=== PATIENT | male | born 1955 | race Caucasian/White ===

== ENCOUNTER 2021-10-26 01:29 | Observation (INO) | payer MEDICARE, SELFPAY ==
[2021-10-26] VITALS (67 sets, daily range): BP systolic 110–186; BP diastolic 60–116; PULSE 76–107; RESP 10–25; TEMP 36.7; O2SAT 90–100; BMI 21.2
--- NOTE | ~2021-10-26 | CT_ITS ---
EXAMINATION: CT abdomen pelvis wo con EXAM DATE: 10/26/2021 04:14 INDICATION: Epigastric pain, emesis 3-4 days. TECHNIQUE: Spiral CT of the abdomen and pelvis was performed without contrast. Axial, coronal and s agittal images of the abdomen and pelvis were reviewed. The dose-length product (DLP) for this exami nation was 373.51 mGy-cm. The exposure was tailored according to patient size (auto mA exposure cont rol), and iterative reconstruction (ASIR) was used as additional dose reduction technique. There is no prior study for comparison. FINDINGS: The liver, spleen, adrenal glands and pancreas are unremarkable. Gallbladder is unremarkab le. No biliary obstruction. There is no nephrolithiasis or hydronephrosis. The prostate is unrema rkable. The bladder is unremarkable. There is no retroperitoneal or pelvic lymphadenopathy. There is mild scattered arteriosclerotic disease. Small left inguinal fat-containing hernia. The appendix is normal. There is mild to moderate colonic diverticulosis. There is no adjacent infla mmatory change to suggest diverticulitis. The stomach and small bowel are unremarkable. There is exp ected amount of colonic stool. No free intraperitoneal gas. The heart is normal in size. There a re no pericardial or pleural effusions. The lung bases are unremarkable. The bones are unremarkable . IMPRESSION: 1. No acute intra-abdominal findings. 2. Mild to moderate colonic diverticulosis. Reviewed, dictated and finalized at location A. [employer] [facility]
[2021-10-26 03:10] LABS: Basophils Absolute Auto 0.1 K/mm3 (0.0-0.1); Basophils Percent Auto 0.2 % (0.2-1.2); Hematocrit 42.5 % (42.0-52.0); Hemoglobin 16.3 g/dL (14.0-18.0); Immature Granulocyte Absolute 0.15 K/mm3 (0.00-0.031); Immature Granulocyte Percent A 0.6 % (0-0.5); Lymphocytes Absolute Auto 1.64 K/mm3 (0.9-3.2); Lymphocytes Percent Auto 6.8 % (18.3-44.2); Mean Corpuscular Hemoglobin 31.9 pg (26-34); Mean Corpuscular Volume 83.2 fl (80-100); Mean Platelet Volume 10.7 fl (7.4-10.4); Monocytes Absolute Auto 2.7 K/mm3 (0.1-0.6); Monocytes Percent Auto 11.3 % (2.6-8.5); Neutrophils Absolute Auto 19.4 K/mm3 (1.3-6.7); Neutrophils Percent Auto 81.1 % (45.5-73.1); Platelet Count Result 319 k/mm3 (150-375); Red Blood Count 5.11 M/mm3 (4.6-6.20); Red Cell Distribution Width 11.5 % (11.5-14.5)
[2021-10-26 03:21] LABS: Add Urine Microscopic? YES; Appearance Urine Clear (Clear); Bacteria Urine Trace /hpf; Bilirubin Urine Negative (Negative); Blood Urine 1+ (Negative); Color Urine Yellow (Yellow); Glucose Urine UA Negative (Negative); Hyaline Casts Urine 30-49 /lpf; Ketones Urine Negative (Negative); Leukocyte Esterase Ur Negative LEU/UL (Negative); Mucus Urine Rare /lpf; Nitrate Urine Negative (Negative); Protein Urine 1+ mg/dL (Negative); RBC Urine 0-2 /hpf (0-2); Specific Grav Ur 1.019 (1.001-1.035); Squamous Epithelial Cell Urine Rare /hpf (Few); Urobilinogen Urine Negative mg/dL (<2.0); WBC Urine 0-3 /hpf
[2021-10-26 03:27] LABS: Alanine Aminotransferase 27 U/L (4-50); Albumin Level 5.1 g/dL (3.5-5.1); Alkaline Phosphatase 60 U/L (38-126); Aspartate Amino Transferase 41 U/L (17-59); Bilirubin,Total 2.1 mg/dL (0.2-1.3); Blood Urea Nitrogen 108 mg/dL (9-20); Calcium 9.9 mg/dL (8.4-10.2); Carbon Dioxide 17 mmol/L (22-30); Chloride 87 mmol/L (98-107); Estimated Glomerular Filt Rate 15; Glucose 170 mg/dL (65-110); Lipase 136 U/L (23-300); Potassium 3.6 mmol/L (3.4-5.0)
[2021-10-26 03:28] LABS: Anion Gap 16 mmol/L (8-16); Sodium 120 mmol/L (137-145)
[2021-10-26 03:38] LABS: Mean Corpuscular HGB Conc 38.4 g/dl (32-36)
[2021-10-26] MEDS: ONDANSETRON INJ 4 MG/2 ML VIAL IV PUSH (03:44)
[2021-10-26] MEDS: SODIUM CHLORIDE 0.9% IV 1,000 ML 999 ML IV CONT ×2 (03:44→05:29)
[2021-10-26] MEDS: PANTOPRAZOLE SODIUM IV 40 MG VIAL IV PUSH ×2 (04:37→09:23)
--- NOTE | 2021-10-26 04:56 | ED.NAVMDI ---
HPI - Nausea/Vomiting/Diarrhea General Chief complaint: Nausea/Vomiting/Diarrhea Stated complaint: nausea, vomiting Time Seen by Provider: 10/26/21 03:02 History of Present Illness HPI Narrative: Patient is a 66-year-old male who presents ER with nausea and vomiting. Ongoing for 5 days. Reports she cannot anything up at this time. Reports begins with a pit in his stomach in his epigastrium. This happens to him recurrently but usually lasts no longer than 3 days. He has burning going up into his chest. He has been trying to self induce vomit and had some pink emesis earlier. No ly hemoptysis or clots. Denies fevers or chills or sweats. Maintains normal urination. He reports over 20 pound weight loss over the last 5 days due to vomiting. No syncope or dizziness. Related Data Allergies Allergy/AdvReac Type Severity Reaction Status Date / Time Penicillins Allergy Itching Verified 10/26/21 03:43 Review of Systems Review of Systems: All systems reviewed & are unremarkable except as noted in HPI and below Constitutional: Constitutional: Denies chills, Reports fatigue and Denies fever(s) ENT: Denies nasal congestion and Denies sore throat Cardiovascular: Cardiovascular: Denies chest pain, Denies rapid heart rate and Denies radiating jaw, neck or arm pain Respiratory: Respiratory: Denies cough and Denies dyspnea Gastrointestinal: Gastrointestinal: Reports abdominal pain, Denies constipation, Denies diarrhea, Reports nausea and Reports vomiting Genitourinary: Genitourinary: Denies oliguria, Denies dysuria and Denies urinary frequency Musculoskeletal: Musculoskeletal: Denies back pain and Denies muscle cramps PMFSH Past Medical History Medical History (Updated 10/26/21 @ 07:22 by Kane Martin MD) Healthy adult male Surgical History Surgical History (Updated 10/26/21 @ 04:57 by Kane Martin MD) No history of previous surgery Social History Social History (Updated 10/26/21 @ 04:57 by Kane Martin MD) Smoking status: Current every day smoker Tobacco type: e-cigarettes/vaping Exam Narrative: GENERAL: Well-appearing, well-nourished, and in no acute distress. HEAD: Normocephalic, atraumatic. EYES: PERRL and EOMI. ENT: Mucous membranes moist. CHEST: Clear to auscultation. No respiratory distress. HEART: Regular rate and rhythm. Normal peripheral pulses. ABDOMEN: Soft, mild tenderness epigastrium, nondistended, normal active bowel sounds. EXTREMITIES: Normal range of motion. No edema. SKIN: Warm, dry, no rash. NEURO: Alert and oriented x3. PSYCH: Normal mood and affect. Course Course Emergency Course: Patient informed of results. Admit to hospitalist service. Patient is given 2 L of IV fluid bolus and he will receive a continuous infusion. Will give Protonix for his GI symptoms. Patient also reports he has been sitting in a indoor whirlpool hot tub to regulate his temperature daily. This may have contributed to his decline. Vital Signs Vital signs: Vital Signs Pulse Rate 89 10/26/21 01:33 Respiratory Rate 20 10/26/21 01:33 Blood Pressure 139/102 H 10/26/21 01:33 Pulse Oximetry 99 10/26/21 01:33 Pulse Rate 96 10/26/21 06:51 Respiratory Rate 18 10/26/21 06:51 Blood Pressure 144/77 H 10/26/21 06:51 Pulse Oximetry 99 10/26/21 06:51 MDM - Nausea/Vomiting/Diarrhea Lab Data Result diagrams: 10/26/21 03:03 10/26/21 03:03 Labs: Lab Results 10/26/21 10/26/21 10/26/21 Range/Units 03:03 03:03 03:03 WBC 24.0 H (4.5-10.0) K/mm3 RBC 5.11 (4.6-6.20) M/mm3 Hgb 16.3 (14.0-18.0) g/dL Hct 42.5 (42.0-52.0) % MCV 83.2 (80-100) fl MCH 31.9 (26-34) pg MCHC 38.4 H (32-36) g/dl RDW 11.5 (11.5-14.5) % Plt Count 319 (150-375) k/mm3 MPV 10.7 H (7.4-10.4) fl Immature Gran % (Auto) 0.6 H (0-0.5) % Neut % (Auto) 81.1 H (45.5-73.1) % Lymph % (Auto) 6.8 L (18.3-44.2) %
[2021-10-26] MEDS: SODIUM CHLORIDE 0.9% IV 1,000 ML 100 ML IV CONT ×2 (07:39→18:48)
--- NOTE | 2021-10-26 13:48 | PM.IMHP ---
H&P: HPI History of Present Illness Date/Time: 10/26/21 13:48 ED-HPI Narrative: Patient is a 66-year-old male who presents ER with nausea and vomiting. Ongoing for 5 days. Reports she cannot anything up at this time. Reports begins with a pit in his stomach in his epigastrium. This happens to him recurrently but usually lasts no longer than 3 days. He has burning going up into his chest. He has been trying to self induce vomit and had some pink emesis earlier. No ly hemoptysis or clots. Denies fevers or chills or sweats. Maintains normal urination. He reports over 20 pound weight loss over the last 5 days due to vomiting. No syncope or dizziness. 10/26/2021 interval history: patient continued to have symptoms denies any hematemesis, or hematochezia, patient has a leukocytosis no fever or chills, CT scan of the abdomen essentially normal,Patient is significant elevated BUN and creatinine can also result in and nausea and vomiting, not not sure what patient baseline BUN and creatinine, will do the kidney ultrasound, will do cardiac echo, a consult Nephrology for further recommendation. patient has hyponatremia most likely secondary to emesis resulting in dehydration will gently hydrate the patient, will consult GI for further recommendation, will order blood culture and monitor the patient., patient is admitted as inpatient most likely will stay in the hospital for 2 midnights. Chief Complaint: nausea and vomiting Review of Systems Review of Systems: All systems reviewed & are unremarkable except as noted in HPI and below PMFSH Past Medical History Medical History (Updated 10/26/21 @ 18:04 by Leslie Ordoñez MD) Healthy adult male Surgical History Surgical History (Updated 10/26/21 @ 04:57 by Kane Martin MD) No history of previous surgery Social History Social History (Updated 10/26/21 @ 04:57 by Kane Martin MD) Years smoked: 10 Smoking status: Former smoker Tobacco type: cigarettes Second hand tobacco smoke exposure: Yes Additional smoking assessment comments: currently vapes on occasion Alcohol intake: former Substance use: current Substance use type: marijuana Other substance usage details: quit drinking 4-5 years ago Last use: marijuana a month ago Spiritual care concerns: No Meds Home Medications and Allergies Home Medications Medication Instructions Recorded Confirmed Type No Home Medications 10/26/21 10/26/21 History Allergies Allergy/AdvReac Type Severity Reaction Status Date / Time Penicillins Allergy Itching Verified 10/26/21 13:40 Vital Signs Vital Signs - 24 hr 10/26/21 01:33 10/26/21 03:45 10/26/21 04:38 Pulse Rate 89 93 95 Respiratory Rate 20 24 H 12 Blood Pressure 139/102 H 144/105 H 160/100 H Pulse Oximetry 99 99 98 10/26/21 05:24 10/26/21 06:51 10/26/21 07:00 Pulse Rate 90 96 82 Respiratory Rate 12 18 20 Blood Pressure 186/107 H 144/77 H Pulse Oximetry 100 99 10/26/21 07:01 10/26/21 07:15 10/26/21 07:30 Pulse Rate 83 82 90 Respiratory Rate 21 H 20 11 L Blood Pressure 147/83 H Pulse Oximetry 98 99 10/26/21 07:44 10/26/21 07:45 10/26/21 08:00 Pulse Rate 104 H 95 81 Respiratory Rate 11 L 10 L 19 Blood Pressure 143/104 H Pulse Oximetry 90 96 93 10/26/21 08:01 10/26/21 08:15 10/26/21 08:30 Pulse Rate 80 80 86 Respiratory Rate 17 19 21 H Blood Pressure 145/71 H Pulse Oximetry 97 97 95 10/26/21 08:31 10/26/21 08:45 10/26/21 09:00 Pulse Rate 87 85 107 H Respiratory Rate 20 20 24 H Blood Pressure 116/61 116/61 Pulse Oximetry 96 95 10/26/21 09:15 10/26/21 09:30 10/26/21 09:45 Pulse Rate 92 94 90 Respiratory Rate 21 H 16 20 Blood Pressure Pulse Oximetry 98 10/26/21 10:00 10/26/21 10:01 10/26/21 10:15 Pulse Rate 92 93 96 Respiratory Rate 23 H 19 17 Blood Pressure 131/83 Pulse Oximetry 94 99 99 10/26/21 10:30 10/26/21 10:31 10/26/21 10:45 Pulse Rate 90 94 8
--- NOTE | 2021-10-26 13:57 | PC.NURSE ---
Patient boarding in the ED - admission assessment completed.
--- NOTE | 2021-10-26 23:20 | ADMGEN ---
This patient, Viridiana Prado, was admitted to IMU Room 209-01 on 10/26/21 at 2304. Patient/family oriented to hospital policies and general routines including ID bracelet, bed and alarms, visiting hours, pain management, procedures, bathroom and other care routines, personal items, smoking policy, room service/diet, and visiting hours. Information on how to activate the Rapid Response Team has been discussed. Patient/Family are encouraged to report perceived risks to care and to ask questions if they do not understand what they are told or what they should do.
[2021-10-27] VITALS (10 sets, daily range): BP systolic 115–139; BP diastolic 61–77; PULSE 70–90; RESP 18–21; TEMP 36.1–36.6; O2SAT 95–100
[2021-10-27] MEDS: SODIUM CHLORIDE 0.9% IV 1,000 ML 100 ML IV CONT (04:10)
[2021-10-27 05:17] LABS: Hematocrit 34.3 % (42.0-52.0); Hemoglobin 12.2 g/dL (14.0-18.0); Mean Corpuscular HGB Conc 35.6 g/dl (32-36); Mean Corpuscular Hemoglobin 31.8 pg (26-34); Mean Corpuscular Volume 89.3 fl (80-100); Platelet Count Result 228 k/mm3 (150-375); Red Blood Count 3.84 M/mm3 (4.6-6.20); Red Cell Distribution Width 11.8 % (11.5-14.5); White Blood Count 11.6 K/mm3 (4.5-10.0)
[2021-10-27 05:40] LABS: Albumin Level 3.8 g/dL (3.5-5.1); Anion Gap 5 mmol/L (8-16); Blood Urea Nitrogen 61 mg/dL (9-20); Calcium 8.4 mg/dL (8.4-10.2); Carbon Dioxide 26 mmol/L (22-30); Chloride 100 mmol/L (98-107); Estimated CRCL calculation 41 ml/min; Estimated Glomerular Filt Rate 41; Glucose 113 mg/dL (65-110); Magnesium 2.8 mg/dL (1.6-2.3); Phosphorus 2.9 mg/dL (2.5-4.5); Potassium 4.2 mmol/L (3.4-5.0); Sodium 131 mmol/L (137-145)
[2021-10-27] MEDS: DEXTROSE 5% IN WATER 500 ML 250 ML IV CONT (08:09)
--- NOTE | 2021-10-27 10:42 | PM.IMPN ---
Progress Note: A&P Assessment and Plan (1) Acute hyponatremia: Code(s): E87.1 - Hypo-osmolality and hyponatremia Status: Acute Assessment and Plan: Sodium initially low at 120 on admission likely due to severe dehydration -IV fluids were given overnight and his sodium actually corrected too fast -will give 500 cc of D5W and recheck a sodium. -he has no neurological dysfunction -I have spoken to Dr. Jaeger about this and he is consulted, appreciate his further recommendations (2) Acute kidney injury: Code(s): N17.9 - Acute kidney failure, unspecified Status: Acute Assessment and Plan: Sounds like this is due to dehydration with considerable insensible losses since he has been in his jacuzzi tub for multiple days -continue with IV hydration -UA negative for UTI -abdominal pelvis CT shows no abnormalities, no indication for renal ultrasound at this time -nephrology consulted (3) Nausea & vomiting: Code(s): R11.2 - Nausea with vomiting, unspecified Status: Acute Assessment and Plan: Patient describes gastritis type symptoms so I will start a PPI. Lipase normal -abdominal pelvis CT shows no acute intra-abdominal findings -recommend outpatient GI follow-up with EGD outpatient -advance diet as tolerated (4) Anemia: Code(s): D64.9 - Anemia, unspecified Status: Acute Assessment and Plan: Patient's hemoglobin on admission was 16.3 and dropped to 12.2 with IV fluids -this is likely delusional as the patient was significantly dehydrated on admission. He has no past labs here at this facility -no signs of bleeding, will recheck an H&H at noon to ensure no bleeding -PPI started (5) Hyperglycemia: Code(s): R73.9 - Hyperglycemia, unspecified Status: Acute Assessment and Plan: Likely due to acute illness -check A1c in the morning Additional Plan once we know sodium is in the desired range, will transfer him out of IMU. Time Spent With Patient Time with patient: 25 - 35 minutes Subjective Date/time seen: 10/27/21 10:42 Interval history: Pt is a 66-year-old male here for ZONIA. Patient was seen today and states that he has been having this burning epigastric pain that feels like acid in his stomach for the last couple days. He says this happens about once a year and he has to make himself throw up and he feels nauseous. He decided that he was not feeling well and he wanted to sit in his Jacuzzi tub for many hours for multiple days. He started to feel dehydrated and had decreased urine output at that time. He is now urinating a lot more and his stomach issues have resolved so far. He is hesitant to eat anything more than clear liquids but he is going to try later today. He has no chest pain. Review of Systems Review of Systems: All systems reviewed & are unremarkable except as noted in HPI and below Exam Narrative: General: Well developed well nourished patient in NAD HEENT: normocephalic Neck: supple Neuro: Alert and oriented x4 CV:RRR. Telemetry shows normal sinus rhythm Resp:CTA Abd: Soft, non distended. No pain to palpation. Positive bowel sounds Extremities: No swelling, erythema, or pain to palpation. Objective Data Vital Signs Vital Signs: Vital Signs - 24 hr 10/26/21 10:45 10/26/21 11:00 10/26/21 11:01 Temperature Pulse Rate 86 96 92 Respiratory Rate 19 17 23 H Blood Pressure 155/109 H Pulse Oximetry 96 97 98 10/26/21 11:15 10/26/21 11:30 10/26/21 11:45 Temperature Pulse Rate 85 93 85 Respiratory Rate 12 11 L 18 Blood Pressure Pulse Oximetry 99 96 100 10/26/21 12:00 10/26/21 12:01 10/26/21 12:15 Temperature Pulse Rate 82 84 95 Respiratory Rate 20 21 H 25 H Blood Pressure 140/61 Pulse Oximetry 98 97 10/26/21 12:30 10/26/21 12:31 10/26/21 12:45 Temperature Pulse Rate 82 84 94 Respiratory Rate 14 16 18 Blood Pressure 144/76 H Pulse Oxi
[2021-10-27 11:23] LABS: Hematocrit 31.8 % (42.0-52.0); Hemoglobin 11.3 g/dL (14.0-18.0)
[2021-10-27 11:29] LABS: Sodium 130 mmol/L (137-145)
[2021-10-27] MEDS: PANTOPRAZOLE 40 MG TABLET PO (12:09)
[2021-10-27] MEDS: DEXTROSE 5% IN WATER 500 ML 200 ML IV CONT (12:12)
--- NOTE | 2021-10-27 13:00 | PM.CNNEP ---
Assessment and Plan Assessment and plan (1) Acute kidney injury: Code(s): N17.9 - Acute kidney failure, unspecified Status: Acute Assessment and Plan: resolving responded to IVF hydration as noted with improvement in creatinine secondary to pre-renal factors from vomiting and insensible losses follow trend of repeat labs and UOP (2) Hyponatremia: Code(s): E87.1 - Hypo-osmolality and hyponatremia Status: Acute Assessment and Plan: noted on admission however, with IVF resuscitation, he has overcorrected went from 120 - 131mmol/L in 24 hours ideally, usual rate of change is 4 - 6mmol/L over 24 hours but not to exceed 8mmol/L normal saline IVFs stopped earlier this AM (but suspect his sodium was already higher than 131 by then) given D5W IVF but sodium still elevated by repeat testing so dosed with DDAVP and given further D5W IVFs follow trend of repeat sodium (3) Anemia: Code(s): D64.9 - Anemia, unspecified Status: Acute Assessment and Plan: significant drop in H/H noted suspect admission H/H was a reflection of hemoconcentration given his severe volume depletion follow trend for now (4) Nausea & vomiting: Code(s): R11.2 - Nausea with vomiting, unspecified Status: Acute Assessment and Plan: cyclic event apparently every year possible dyspesia versus gastritis or something mopre started on PPI Gastroenterology consult Will continue to follow. History of Present Illness Reason for Consult Consult date: 10/27/21 Reason for consult: acute renal failure and hyponatremia Chief Complaint Chief complaint: ZONIA, Vomiting, Hyponatremia History of Present Illness Narrative: The patient is a 66-year-old male with a past medical history as outlined below who presented to [facility] Emergency room due to persistent nausea and vomiting. The patient states that his nausea and vomiting has been going on for approximately 5 days and he has been unable to keep anything down. He reports that initially it began as a pit in his stomach which caused him to feel nauseous and feel like vomiting would actually help. He says this usually happens every year but usually last only about 3 days. He gave no history of syncope, lightheadedness, dizziness palpitations, or shortness of breath. He did say that because the nausea was so severe, he felt that inducing vomiting may actually help his symptoms but it did not seem to do so. No reported fevers or chills. He does report a significant weight loss secondary to the persistent nausea and vomiting over the past 5 days. Workup and evaluation emergency room demonstrated the patient to have a markedly elevated BUN and creatinine consistent with acute kidney injury in association with hyponatremia with a sodium of 120. His CBC was unremarkable and he did undergo a CT scan of the abdomen pelvis for further evaluation of her sit his symptoms which was unrevealing for any type of acute pathology. On the assumption of dehydration playing a role with all of these issues, he was started on IV fluids and subsequent admitted to the hospital for further evaluation and therapy. Since his admission, his creatinine has improved remarkably as evidence by his a.m. labs but his hyponatremia appears to have overcorrected. His sodium in the emergency room was 120mmol/L and with aggressive IV fluid resuscitation his sodium early this morning had increased to 131 millimoles per L. his normal saline IV fluids were immediately stopped but it is suspected that his sodium level by that time was probably even higher than 131 millimoles per L as that value was obtained at 4:00 a.m. and the IV fluids were stopped several hours later. Renal consultation was requested due to his acute kidney injury (which appears to be resolving) and his hyponatremia. Unfortunately, I do not have any previous labs to compare to but presumably
--- NOTE | 2021-10-27 13:05 | WPDGICN ---
Assessment and Plan Assessment and plan (1) Nausea & vomiting: Code(s): R11.2 - Nausea with vomiting, unspecified Status: Acute Assessment and Plan: Nausea vomiting resolved. Etiology unclear but may represent gastritis or dyspepsia. Plan to evaluate with EGD tomorrow morning. (2) Acute kidney injury: Code(s): N17.9 - Acute kidney failure, unspecified Status: Acute Assessment and Plan: Acute kidney injury likely on the basis of dehydration. Renal service to evaluate consult. Continued rehydration advised. (3) Burning chest pain: Code(s): R07.89 - Other chest pain Status: Acute Assessment and Plan: Burning chest pain persists consistent with possible esophagitis. Plan to evaluate with EGD in the morning. Renal function continues to improve will wait till tomorrow to proceed further. Agree with PPI therapy for now. GI Consult Note Consult date/time: 10/27/21 13:05 HPI: Viridiana Prado is a 66 year old male I am asked to see because of nausea vomiting. Patient gives a history of abdominal pressure gaseous bloating. Occasional burning substernal pain. He states symptoms occur twice a year and have done so for at least 5 years. He states his current episode began 1 week ago with abdominal bloating he forced himself to have nausea vomiting. He continues to have substernal burning. Particularly when eating. He no longer is vomiting. Patient presented the emergency room was admitted with acute renal insufficiency. Apparently significantly dehydrated. Currently tolerating liquids Jell-O has and broth with minimal difficulty. Does not take medications and has never tried Tums are antacids for his discomfort in the past. Reports no bowel movement for 5 days. Review of Systems Review of Systems: All systems reviewed & are unremarkable except as noted in HPI and below [facility] Past Medical History Medical History (Updated 10/27/21 @ 13:07 by Jorge Eddy MD) Healthy adult male Surgical History Surgical History (Updated 10/26/21 @ 04:57 by Kane Martin MD) No history of previous surgery Family History Family History Mother Breast cancer Father Cancer of kidney Hypertension GERD (gastroesophageal reflux disease) Social History Social History (Updated 10/26/21 @ 04:57 by Kane Martin MD) Years smoked: 10 Smoking status: Former smoker Tobacco type: cigarettes Second hand tobacco smoke exposure: Yes Additional smoking assessment comments: currently vapes on occasion Alcohol intake: former Substance use: current Substance use type: marijuana Other substance usage details: quit drinking 4-5 years ago Last use: marijuana a month ago Spiritual care concerns: No Meds Home Medications and Allergies Home Medications Medication Instructions Recorded Confirmed Type No Home Medications 10/26/21 10/26/21 History Allergies Allergy/AdvReac Type Severity Reaction Status Date / Time Penicillins Allergy Itching Verified 10/26/21 13:40 Vital Signs Vital Signs - 24 hr 10/26/21 13:15 10/26/21 13:30 10/26/21 13:45 Temperature Pulse Rate 89 93 96 Respiratory Rate 16 25 H 22 H Blood Pressure Pulse Oximetry 10/26/21 14:00 10/26/21 14:15 10/26/21 14:30 Temperature Pulse Rate 81 89 91 Respiratory Rate 14 13 15 Blood Pressure Pulse Oximetry 10/26/21 14:45 10/26/21 15:00 10/26/21 15:15 Temperature Pulse Rate 82 79 81 Respiratory Rate 16 19 18 Blood Pressure Pulse Oximetry 10/26/21 15:30 10/26/21 15:45 10/26/21 16:00 Temperature Pulse Rate 83 80 83 Respiratory Rate 21 H 19 21 H Blood Pressure Pulse Oximetry 10/26/21 16:15 10/26/21 16:30 10/26/21 16:45 Temperature Pulse Rate 87 79 94 Respiratory Rate 22 H 20 19 Blood Pressure Pulse Oximetry 10/26/21 17:00 10/26/21 17:15 12
[2021-10-27 15:04] LABS: Sodium 128 mmol/L (137-145)
--- NOTE | 2021-10-27 15:51 | ECG_ITS ---
Measurements Intervals [place] Rate: 73 P: 62 SC: 174 QRS: 65 QRSD: 76 T: 82 QT: 357 QTc: 396 Interpretive Statements SINUS RHYTHM NONSPECIFIC ST & T-WAVE ABNORMALITY- DIFFUSE LEADS BORDERLINE ECG Electronically Signed On 10-27-2021 16:11:21 [employer] by Mario Leigh D.O.
--- NOTE | 2021-10-27 18:22 | PC.NURSE ---
1809-Pt was changed to medical status- pt to move to another room- pt became upset- states he will not move to another room- he voiced he's mad because his son cannot visit- informed pt we have no visitor policy due to covid- and he will get his own GI doctor and is not having his test here - will do it Out Pt- pt stated he's going home
--- NOTE | 2021-10-27 18:36 | PC.NURSE ---
Patient notified of risks of leaving AMA. [Rosalind] notified at 1820. Follow up instructions given to patient. Patient signed AMA form.
--- NOTE | 2021-10-27 19:43 | PM.EVENT ---
Event Note Event Note Event Note: The patient was alert and oriented. he understands that leaving the hospital may result in worsening condition or . The patient still chose to leave AMA.
== END 2021-10-27 18:45 | disposition left against medical advice (07) ==
LOC: ANHED 05:26 → ANHIMU 07:22 → ANHSUROVER 10-29 11:40
PROVIDERS: Internal Medicine Nephrology; Admitting Provider Family Medicine; Emergency Provider Emergency Medicine; Visit Provider Physician Assistant
DX: N17.9 Acute kidney failure, unspecified (principal); E87.1 Hypo-osmolality and hyponatremia; R07.89 Other chest pain; R11.2 Nausea with vomiting, unspecified; D64.9 Anemia, unspecified; R73.9 Hyperglycemia, unspecified; F17.290 Nicotine dependence, other tobacco product, uncomplicated; F12.90 Cannabis use, unspecified, uncomplicated; Z53.29 Procedure and treatment not carried out because of patient's decision for other reasons
CPT/HCPCS: 36415; 74176; 80053; 80069; 81001; 83690; 83735; 84295; 85014; 85018; 85025; 85027; 87040; 93005; 96361; 96365; 96366; 96374; 96375; 96376; 99285; A9270; C9113; G0378; J2405; J7030; J7060; J7070

== ENCOUNTER 2023-07-28 09:51 | Emergency (ER) | payer MEDICARE, SELFPAY ==
--- NOTE | ~2023-07-28 | CT_ITS ---
EXAMINATION: CT cervical spine wo con DATE: 07/28/2023 11:44 INDICATION: Cervical pain. Radiculopathy. TECHNIQUE: Computed tomography (CT) of the cervical spine was performed without intravenous contrast. The dose-length product was 489 mGy-cm. Automated exposure control and iterative reconstruction tech nique were employed. COMPARISON: None FINDINGS: There is reversal of cervical lordosis. There is advanced degenerative disc disease at all cervical spine levels, most severe at C5-6, C6-7 and C7-T1. There is degenerative anterolisthesis at C2-3. There are Schmorl's nodes at superior endplate of C7. There is multilevel uncinate and facet hy pertrophy. Dextroscoliosis. No evidence for perched facet. Craniovertebral junction is normal. Odonto id process is normal. No significant paraspinal soft tissue abnormality. There is emphysema. IMPRESSION: 1. No acute abnormality of the cervical spine. 2: Severe cervical spondylosis. Reviewed, dictated and finalized at location L.
[2023-07-28 09:52] VITALS: BP 180/93; PULSE 72; RESP 20; TEMP 36.3; O2SAT 99
--- NOTE | 2023-07-28 10:28 | ED.EXTPRO ---
HPI - Extremity Problem General Chief complaint: Extremity Problem,Nontraumatic Stated complaint: R UPPER BACK/NECK PAIN Time Seen by Provider: 07/28/23 10:05 History of Present Illness HPI Narrative: Patient is a 68-year-old male who presents ER with pain in the right neck and upper back. Ongoing over the last couple days. Associated with pain and tingling down the right arm. Has had this happen left side previously but never the right. Feels like it is usually related to stress. It is also worsened by turning his head and moving his neck and shoulder. Denies any recent trauma. Patient does note that over the last year he has developed progressive weakness in bilateral hands and can no longer hold a pen and has trouble typing. He has atrophy noted to the hands bilaterally. He denies any lower extremity numbness or weakness. He does not have a primary care doctor and has not been seen for these issues previously. Patient is also noted that he has whole body fasciculations. Cannot describe aggravating or alleviating factors. Related Data Allergies Allergy/AdvReac Type Severity Reaction Status Date / Time codeine Allergy Itching Verified 07/28/23 10:01 Penicillins Allergy Itching Verified 07/28/23 10:01 Review of Systems Review of Systems: All systems reviewed & are unremarkable except as noted in HPI and below Constitutional: Constitutional: Denies chills, Denies fatigue and Denies fever(s) ENT: Reports system reviewed and no additional complaints, except as documented Cardiovascular: Cardiovascular: Reports no additional cardiovascular complaints Respiratory: Respiratory: Reports no additional respiratory complaints Gastrointestinal: Gastrointestinal: Reports no additional gastrointestinal complaints Musculoskeletal: Musculoskeletal: Reports back pain, Denies arthralgias and Denies joint swelling Comments: Muscle fasciculations Neurologic: Denies numbness and Reports weakness Comments: + Paresthesias PMFSH Past Medical History Medical History (Updated 07/28/23 @ 16:12 by Kane Martin MD) Healthy adult male Surgical History Surgical History (Updated 10/26/21 @ 04:57 by Kane Martin MD) No history of previous surgery Family History Family History Mother Breast cancer Father Cancer of kidney Hypertension GERD (gastroesophageal reflux disease) Social History Social History (Updated 10/26/21 @ 04:57 by Kane Martin MD) Years smoked: 10 Smoking status: Former smoker Tobacco type: cigarettes Second hand tobacco smoke exposure: Yes Additional smoking assessment comments: currently vapes on occasion Alcohol intake: former Substance use: current Substance use type: marijuana Other substance usage details: quit drinking 4-5 years ago Last use: marijuana a month ago Spiritual care concerns: No Exam Narrative: GENERAL: Well-appearing, well-nourished, and in no acute distress. HEAD: Normocephalic, atraumatic. ENT: Mucous membranes moist. No tongue or lip fasciculations. NECK: Supple. Tender palpation right paraspinal muscles moving into the trapezius. Has pain with rotating head right and left CHEST: Clear to auscultation. No respiratory distress. HEART: Regular rate and rhythm. Normal peripheral pulses. ABDOMEN: Soft, nontender, nondistended. Back: No reproducible tenderness to the T/L-spine. No paraspinal muscle tenderness. EXTREMITIES: Normal range of motion. No edema. Atrophy of the hands. Normal assembly inspector helper strength and normal strength at the shoulders and elbows with flexion extension. There are some fasciculations of muscles noted at the shoulders/forearm/thighs. SKIN: Warm, dry, no rash. NEURO: Alert and oriented x3. Fasciculations as noted above. No decreased sharp touch of the right upper extremity. PSYCH: Normal mood and affect. Course Course Emergency Course: Patient's
[2023-07-28] MEDS: KETOROLAC 30 MG/ML VIAL (*BKC) IV PUSH (10:49)
[2023-07-28] MEDS: diazePAM INJ (*CRX) 10 MG/2 ML SYRINGE 2 MG IV PUSH (10:50)
[2023-07-28 10:51] LABS: Basophils Absolute Auto 0.1 K/mm3 (0.0-0.1); Basophils Percent Auto 0.5 % (0.2-1.2); Eosinophils Absolute Auto 0.1 K/mm3 (0-0.3); Eosinophils Percent Auto 1.1 % (0-4.4); Hemoglobin 14.8 g/dL (14.0-18.0); Immature Granulocyte Absolute 0.05 K/mm3 (0.00-0.031); Immature Granulocyte Percent A 0.5 % (0-0.5); Lymphocytes Percent Auto 10.2 % (18.3-44.2); Mean Corpuscular HGB Conc 33.6 g/dl (32-36); Mean Corpuscular Volume 92.2 fl (80-100); Mean Platelet Volume 10.8 fl (7.4-10.4); Monocytes Absolute Auto 0.7 K/mm3 (0.1-0.6); Monocytes Percent Auto 7.4 % (2.6-8.5); Neutrophils Absolute Auto 7.8 K/mm3 (1.3-6.7); Neutrophils Percent Auto 80.3 % (45.5-73.1); Platelet Count Result 276 k/mm3 (150-375); Red Blood Count 4.77 M/mm3 (4.6-6.20); Red Cell Distribution Width 12.4 % (11.5-14.5); White Blood Count 9.8 K/mm3 (4.5-10.0)
[2023-07-28 11:07] LABS: Alanine Aminotransferase 24 U/L (6-50); Alkaline Phosphatase 83 U/L (38-126); Anion Gap 15 mmol/L (8-16); Aspartate Amino Transferase 31 U/L (17-59); Bilirubin,Total 0.7 mg/dL (0.2-1.3); Blood Urea Nitrogen 21 mg/dL (9-20); Calcium 9.5 mg/dL (8.4-10.2); Carbon Dioxide 18 mmol/L (22-30); Chloride 109 mmol/L (98-107); Estimated CRCL calculation 65 ml/min; Estimated Glomerular Filt Rate > 60; Glucose 140 mg/dL (65-110); Magnesium 2.2 mg/dL (1.6-2.3); Potassium 3.7 mmol/L (3.4-5.0); Sodium 142 mmol/L (137-145)
[2023-07-28] MEDS: MORPHINE SULFATE (*CRX) 4 MG/ML INJ IV PUSH (12:35)
[2023-07-28 13:19] VITALS: BP 191/87; PULSE 74; RESP 16; O2SAT 98
[2023-07-28] MEDS: HYDROcodone/acetaminophen (*CRX) 5-325 MG TABLET 1 TAB PO (16:24)
[2023-07-28 16:26] VITALS: BP 172/99; PULSE 72; RESP 16; O2SAT 98
== END 2023-07-28 16:23 | disposition home or self-care (01) ==
PROVIDERS: Emergency Provider Emergency Medicine
DX: M47.22 Other spondylosis with radiculopathy, cervical region (principal); R25.3 Fasciculation; F17.290 Nicotine dependence, other tobacco product, uncomplicated
CPT/HCPCS: 36415; 72125; 80053; 83735; 84443; 85025; 96374; 96375; 99284; A9270; J1885; J2270; J3360